=== PATIENT | male | born 1935 | race Caucasian/White ===

== ENCOUNTER 2024-08-06 10:40 | Emergency (ER) | payer OTHER ==
--- NOTE | 2024-08-06 11:34 | RAD REPORT ---
EXAM DESCRIPTION: CT - CTHCSPWOC - 08/06/2024 11:24 am CLINICAL HISTORY: Trauma, head and neck injury. TRAUMA COMPARISON: No comparisons TECHNIQUE: Axial 5 mm thick images of the head were obtained. Axial 2 mm thick images of the cervical spine were obtained with sagittal and coronal reconstruction images generated and reviewed. All CT scans are performed using dose optimization technique as appropriate and may include automated exposure control or mA/KV adjustment according to patient size. FINDINGS: CT HEAD WITHOUT CONTRAST: No acute hemorrhage, hydrocephalus or extra-axial collection is identified.Mild generalized brain atr ophy is present with mild periventricular and deep white matter chronic microvascular ischemic change s.No areas of brain edema or midline shift. The paranasal sinuses and mastoids are clear.Vertebral atherosclerosis.The calvarium is intact. CT CERVICAL SPINE WITHOUT CONTRAST: No fracture or subluxation.Moderate lower cervical degenerative changes.No prevertebral soft tissues swelling is identified. IMPRESSION: No acute intracranial or cervical spine findings.
--- NOTE | 2024-08-06 11:38 | RAD REPORT ---
EXAM DESCRIPTION: CT - Chest Abd Pelvis Wo Con - 08/06/2024 11:25 am CLINICAL HISTORY: Chest and abdomen pain. TRAUMA COMPARISON: Head C Spine Mpr Wo Con dated 08/06/2024 TECHNIQUE: Limited noncontrast examination was performed. All CT scans are performed using dose optimization technique as appropriate and may include automated exposure control or mA/KV adjustment according to patient size. FINDINGS: Mild linear atelectasis is seen in both lung bases. The lungs are otherwise clear.No pleur al or pericardial effusion.No intrathoracic adenopathy. Nondisplaced fracture left posterior eighth and ninth rib fractures. The liver, spleen, pancreas, adrenal glands and kidneys are within normal limits. Gallbladder distens ion with small gallstones. No bowel obstruction, free air, free fluid or abscess. Nonvisualized appendix. Sigmoid diverticulosis coli without diverticulitis. No pathologic lymphadenopathy in the abdomen or pelvis. Postoperative changes lumbar spine with hardware in place and mild levoscoliosis. IMPRESSION: Nondisplaced fractures left posterior eighth and ninth ribs. Distended gallbladder containing numerous stones.
--- NOTE | 2024-08-06 12:36 | EDPHYS ---
Physician Documentation [facility] Name: Marcelo Hinds Age: 89 yrs Sex: Male : 1935 Arrival Date: 08/06/2024 Time: 10:40 Bed 7 Private MD: ED Physician Wilmer Wu HPI: 08/06 12:34 This 89 yrs old Male presents to ER via Wheelchair with complaints of Fall Injury - kb ribcage pain. 12:34 Pt is an 89 year old male who presents for left posterior rib pain after unwittnessed kb fall last night. Daughter states she heard pt fall and went to assist him immediately. Does not believe he lost consciousness. States pt is normally unsteady on his feet so he does fall at times, but normally doesn't have this much pain afterwards. . Historical: - Allergies: 11:02 No Known Allergies; tm6 - PMHx: 11:02 Diabetes mellitus; Depressive disorder; Hypertensive disorder; tm6 - PSHx: 11:03 Appendectomy; tm6 - Immunization history:: Client reports receiving the 2nd dose of the Covid vaccine. - Infectious Disease History:: Denies. - Immunization history: Last tetanus immunization: unknown. - Social history:: Smoking status: Patient denies any tobacco usage or history of. Patient/guardian denies using alcohol. ROS: 12:32 Constitutional: As per HPI kb Exam: 12:32 Constitutional: This is a well developed, well nourished patient who is awake, alert, kb and in no acute distress. Head/Face: Normocephalic, atraumatic. ENT: Moist Mucous membranes Cardiovascular: Regular rate Respiratory: Respirations even and unlabored. No increased work of breathing. Talking in full sentences Abdomen/GI: Soft, non-tender. No distention Skin: Warm, dry with normal turgor. Normal color. MS/ Extremity: Pulses equal, no cyanosis. Neurovascular intact. Full, normal range of motion. Neuro: Awake and alert, GCS 15, oriented to person, place, time, and situation. Moves all extremities. Normal gait. 12:32 Chest/axilla: Inspection: normal, Palpation: tenderness, that is moderate, of the left lateral posterior chest, that totally reproduces the patient's complaints, Vital Signs: 10:56 Pulse 58; Resp 18; Temp 98.1(O); Pulse Ox 95% on R/A; Weight 81.65 kg; Height 6 ft. 0 tm6 in. ; Pain 5/10; 10:58 BP 117 / 57; tm6 13:10 BP 120 / 51; Pulse 59; Resp 16; Temp 97.9; Pulse Ox 96% on R/A; ph 10:56 Body Mass Index 24.41 (81.65 kg, 182.88 cm) tm6 10:56 Pain Scale: Adult tm6 Kayleigh Coma Score: 11:30 Eye Response: spontaneous(4). Motor Response: obeys commands(6). Verbal Response: ph oriented(5). Total: 15. 13:10 Eye Response: spontaneous(4). Motor Response: obeys commands(6). Verbal Response: ph oriented(5). Total: 15. Trauma Score (Adult): 11:30 Eye Response: spontaneous(1); Verbal Response: oriented(1); Motor Response: obeys ph commands(2); Systolic BP: > 89 mm Hg(4); Respiratory Rate: 10 to 29 per min(4); [place] Score: 15; Trauma Score: 12 13:10 Eye Response: spontaneous(1); Verbal Response: oriented(1); Motor Response: obeys ph commands(2); Systolic BP: > 89 mm Hg(4); Respiratory Rate: 10 to 29 per min(4); Kayleigh Score: 15; Trauma Score: 12 MDM: 10:58 Patient medically screened. kb 12:33 Differential diagnosis: contusion, fracture. Data reviewed: vital signs, nurses notes. kb Historians other than the Patient: Daughter/Son: daughter. Counseling: I had a detailed discussion with the patient and/or guardian regarding the historical points, exam findings, and any diagnostic results supporting the discharge/admit diagnosis, radiology results, the need for outpatient follow up, a family practitioner, to return to the emergency department if symptoms worsen or persist or if there are any questions or concerns that arise at home. ED course: Daughter requests pain medication for pt due to his obvious discomfort with movement. Educated on importance of assisting pt with movement especially while taking pain medication. Daughter states she will be with him at all times. . 08/06 11:03 Order name: CT Head C Spine; Complete Time: 11:37 kb 08/06 11:03 Order name: CT Chest Abdomen Pelvis W/O Contrast; Complete Time: 11:41 kb Administered Medications: 13:00 Drug: Acetaminophen-Codeine PO (300 mg-30 mg) 1 tablet PO once; RASS on ADMIN: Combtv4, ph Very Agttd3, Agttd2, Rstlss1, AlertClm0, Drwsy-1, Lt Sdtn-2, Mod Sdtn-3, Dp Sdtn-4, UnArsble-5 Route: PO; 13:11 Follow up: Response: No adverse reaction; Medication administered at discharge. ph Disposition: 13:41 Co-signature as Attending Physician, Wilmer Wu MD I reviewed the patient's care rt provided by the Advanced Practice Provider and agree with the diagnosis and treatment plan. Disposition Summary: 08/06/24 12:36 Discharge Ordered Notes: Location: Home kb Condition: Stable kb Diagnosis - Multiple fractures of ribs, left side - eight and nine kb Followup: kb - With: Emergency Department - When: As needed - Reason: Worsening of condition Followup: kb - With: Private Physician - When: 2 - 3 days - Reason: Recheck today's complaints, Continuance of care, Re-evaluation by your physician Discharge Instructions: - Discharge Summary Sheet kb - Rib Fracture, [id number] kb Forms: - Medication Reconciliation Form kb - Antibiotic Education kb - Prescription Opioid Use kb - Patient Portal Instructions kb - Leadership Thank You Letter kb Prescriptions: - acetaminophen-codeine 300-30 mg Oral tablet - take 1 tablet ORAL route every 6 hours As needed as needed for pain; 12 tablet; kb Refills: 0, Product Selection Permitted Signatures: Dispatcher [employer] Debbie Kim, FIELD ARTILLERY OFFICER-C FIELD ARTILLERY OFFICER-Sarahy Berkowitz, RN RN ph Wilmer Wu MD MD rt Jo Foster RN RN tm6 Corrections: (The following items were deleted from the chart) 11:04 11:03 Chest Abdomen Pelvis Wo Con+CT.RAD.BRZ ordered. EDCA VILMACA 11:04 11:02 PSHx: None; tm6 tm6
--- NOTE | 2024-08-06 12:36 | ER ---
Nurse's Notes [facility] Name: Marcelo Hinds Age: 89 yrs Sex: Male : 1935 Arrival Date: 08/06/2024 Time: 10:40 Bed 7 Private MD: Diagnosis: Multiple fractures of ribs, left side-eight and nine Presentation: 08/06 10:58 Chief complaint: Patient states: fell in the middle of the night last night -- tm6 unwitnessed, this morning complaining of rib pain on left side. Ebola Screen: Patient negative for fever greater than or equal to 101.5 degrees Fahrenheit, and additional compatible Ebola Virus Disease symptoms Patient denies exposure to infectious person. Patient denies travel to an Ebola-affected area in the 21 days before illness onset. No symptoms or risks identified at this time. Initial Sepsis Screen: Does the patient meet any 2 criteria? No. Patient's initial sepsis screen is negative. Does the patient have a suspected source of infection? No. Patient's initial sepsis screen is negative. Risk Assessment: Do you want to hurt yourself or someone else? Patient reports no desire to harm self or others. Onset of symptoms was August 06, 2024. 10:58 Method Of Arrival: Wheelchair tm6 10:58 Acuity: RUTHIE 3 tm6 12:55 Care prior to arrival: None. Mechanism of Injury: Fall from standing position. Trauma ph event details: Injury occurred in the [facility], Injury occurred: at home. 13:10 Coronavirus screen: Vaccine status: Patient reports receiving the 2nd dose of the covid ph vaccine. Triage Assessment: 10:58 General: Appears in no apparent distress. Behavior is calm, cooperative. Pain: tm6 Complains of pain in anterior aspect of left lateral abdomen Pain does not radiate. Pain currently is 5 out of 10 on a pain scale. Aggravated by increased activity, repositioning. EENT: No signs and/or symptoms were reported regarding the EENT system. Neuro: Level of Consciousness is awake, alert, obeys commands, Oriented to person, place, time, situation. Cardiovascular: Patient's skin is warm and dry. Respiratory: Airway is patent Respiratory effort is even, unlabored, Respiratory pattern is regular, symmetrical. GI: No signs and/or symptoms were reported involving the gastrointestinal system. Abdomen is flat, non-distended. : No signs and/or symptoms were reported regarding the genitourinary system. Derm: No signs and/or symptoms reported regarding the dermatologic system. Musculoskeletal: Reports pain in anterior aspect of left lateral abdomen. Trauma Activation: Not Applicable Physician: ED Physician; Name: ; Notified At: ; Arrived At: Physician: General Surgeon; Name: ; Notified At: ; Arrived At: Physician: Radiology; Name: ; Notified At: ; Arrived At: Physician: Respiratory; Name: ; Notified At: ; Arrived At: Physician: Lab; Name: ; Notified At: ; Arrived At: Historical: - Allergies: 11:02 No Known Allergies; tm6 - PMHx: 11:02 Diabetes mellitus; Depressive disorder; Hypertensive disorder; tm6 - PSHx: 11:03 Appendectomy; tm6 - Immunization history:: Client reports receiving the 2nd dose of the Covid vaccine. - Infectious Disease History:: Denies. - Immunization history: Last tetanus immunization: unknown. - Social history:: Smoking status: Patient denies any tobacco usage or history of. Patient/guardian denies using alcohol. Screenin:35 [facility] ED Fall Risk Assessment (Adult) History of falling in the last 3 months, ph including since admission Yes- single mechanical fall (1 pt) Confusion or Disorientation No (0 pts) Intoxicated or Sedated No (0 pts) Impaired Gait Yes (1 pt) Mobility Assist Device Used Yes (1 pt) Altered Elimination No (0 pt) Score/Fall Risk Level 3 or more points = High Risk Oriented to surroundings, Maintained a safe environment, Used ambulatory aids as needed (educated on \T\ assisted with). 12:54 Abuse screen: Denies threats or abuse. Denies injuries from another. Nutritional ph screening: No deficits noted. Tuberculosis screening: No symptoms or risk factors identified. Primary Survey: 11:30 NO uncontrolled hemorrhage observed. A: The client is awake and alert. The airway is ph patent. Breathing/Chest: Spontaneous respiratory effort, equal unlabored respirations, breath sounds clear bilaterally, regular pattern, symmetrical chest rise and fall. Circulation: No external hemorrhage present. Regular and strong central pulse, skin warm/dry/normal color. Disability Pupils are equal, round, reactive to light and accommodation. Exposure/Environment: All clothing and personal items were removed. Forensic evidence collection is not deemed to be indicated at this time. Items placed in patient belonging bag. There is no evidence of uncontrolled external bleeding. No obvious injuries are noted at this time. A warming method has been applied: A warm blanket has been provided to the patient. 13:09 Reassessment Alertness and Airway: Awake and alert. The airway is patent. Breathing: ph Spontaneous respiratory effort, equal unlabored respirations, breath sounds clear bilaterally, regular pattern with symmetrical chest rise and fall. Circulation: No external hemorrhage noted. Regular and strong central pulse, skin warm/dry/normal color. Disability: Pupils Pupils are equal, round, reactive to light and accomodation. Alert. Secondary Survey: 11:30 HEENT: No deficits noted. Musculoskeletal: Reports pain in left lateral posterior chest ph and anterior aspect of left lateral abdomen. Assessment: 11:30 General: Appears in no apparent distress. Behavior is calm, cooperative. Pain: Complains of pain in left lateral posterior chest and anterior aspect of left lateral abdomen. Neuro: Level of Consciousness is awake, alert, obeys commands, Oriented to person, place, time, situation. Cardiovascular: Capillary refill < 3 seconds in bilateral fingers Patient's skin is warm and dry. Respiratory: Airway is patent Respiratory effort is even, unlabored. GI: No signs and/or symptoms were reported involving the gastrointestinal system. Derm: Skin is pink, warm \T\ dry. Vital Signs: 10:56 Pulse 58; Resp 18; Temp 98.1(O); Pulse Ox 95% on R/A; Weight 81.65 kg; Height 6 ft. 0 tm6 in. ; Pain 5/10; 10:58 BP 117 / 57; tm6 13:10 BP 120 / 51; Pulse 59; Resp 16; Temp 97.9; Pulse Ox 96% on R/A; ph 10:56 Body Mass Index 24.41 (81.65 kg, 182.88 cm) tm6 10:56 Pain Scale: Adult tm6 Kayleigh Coma Score: 11:30 Eye Response: spontaneous(4). Motor Response: obeys commands(6). Verbal Response: ph oriented(5). Total: 15. 13:10 Eye Response: spontaneous(4). Motor Response: obeys commands(6). Verbal Response: ph oriented(5). Total: 15. Trauma Score (Adult): 11:30 Eye Response: spontaneous(1); Verbal Response: oriented(1); Motor Response: obeys ph commands(2); Systolic BP: > 89 mm Hg(4); Respiratory Rate: 10 to 29 per min(4); [place] Score: 15; Trauma Score: 12 13:10 Eye Response: spontaneous(1); Verbal Response: oriented(1); Motor Response: obeys ph commands(2); Systolic BP: > 89 mm Hg(4); Respiratory Rate: 10 to 29 per min(4); Kayleigh Score: 15; Trauma Score: 12 ED Course: 10:45 Patient arrived in ED. ra3 10:58 Debbie Mckeon FNP-C [facility] kb 10:58 Wilmer Wu MD is Attending Physician. kb 10:58 Arm band placed on right wrist. tm6 10:59 Triage completed. tm6 11:08 Sarahy Tristan, RICHARD is Primary Nurse. ph 11:26 CT Head C Spine In Process Unspecified. EDMS 11:27 CT Chest Abdomen Pelvis W/O Contrast In Process Unspecified. EDMS 12:54 Patient has correct armband on for positive identification. Bed in low position. Call ph light in reach. Side rails up X 1. Pulse ox on. NIBP on. 12:54 Patient maintains SpO2 saturation greater than 95% on room air. ph 12:54 Thermoregulation: warm blanket given to patient. ph 13:09 No provider procedures requiring assistance completed. Patient did not have IV access ph during this emergency room visit. Administered Medications: 13:00 Drug: Acetaminophen-Codeine PO (300 mg-30 mg) 1 tablet PO once; RASS on ADMIN: Combtv4, ph Very Agttd3, Agttd2, Rstlss1, AlertClm0, Drwsy-1, Lt Sdtn-2, Mod Sdtn-3, Dp Sdtn-4, UnArsble-5 Route: PO; 13:11 Follow up: Response: No adverse reaction; Medication administered at discharge. ph Medication: 12:54 VIS not applicable for this client. ph Intake: 13:11 PO: 0ml; Total: 0ml. ph Output: 13:11 Urine: 0ml; Total: 0ml. ph Outcome: 12:36 Discharge ordered by . 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 medication usage, Demonstrated understanding of instructions, follow-up care, medications, Prescriptions given X 1, 13:11 Patient's length of stay was not longer than 2 hours. ph 13:11 Patient left the ED. ph Signatures: Dispatcher [employer] EDRI Debbie Mckeon, CHRIS ROBERTS-Sarahy Berkowitz RN RN Jo Foster RN RN tm6 Radha Escalera ra3 Corrections: (The following items were deleted from the chart) 11:04 11:02 PSHx: None; tm6 tm6
[2024-08-06] MEDS ORDERED: CODEINE 30MG/APAP 300MG TAB ONE (12:57)
[2024-08-06 13:39] VITALS: BP 120/51; TEMP 97.9; O2SAT 96
== END 2024-08-06 13:11 | disposition home or self-care (01) ==
LOC: ER 10:40
DX: S22.42XA Multiple fractures of ribs, left side, initial encounter for closed fracture (principal); E11.9 Type 2 diabetes mellitus without complications; F32.A Depression, unspecified; I10 Essential (primary) hypertension; W18.30XA Fall on same level, unspecified, initial encounter; Y93.9 Activity, unspecified; Y92.019 Unspecified place in single-family (private) house as the place of occurrence of the external cause; Z91.81 History of falling
CPT/HCPCS: 70450; 71250; 72125; 74176; 99284